=== PATIENT | female | born 1930 | race Caucasian/White ===

== ENCOUNTER 2017-01-23 16:53 | Inpatient (IN) | payer MEDICARE, MEDICAID ==
[~2017-01-23] VITALS: Ht 149.9 cm; Wt 42.3 kg
[2017-01-23] MEDS ORDERED: ALBUTEROL SULFATE 2.5 MG/ 0.5 ML NEBU NEB ONE (17:30)
[2017-01-23] MEDS ORDERED: IV NORMAL SALINE 500 ML BAG IV ONE (17:30)
[2017-01-23] MEDS ORDERED: IPRATROPIUM BROMIDE 0.5 MG/2.5 ML NEBU NEB ONE (17:30)
[2017-01-23] MEDS ORDERED: methylPREDNISolone SOD SUCC 40 MG/ML VIAL IV ONE (17:30)
--- NOTE | 2017-01-23 17:31 | NUR ---
PT IS IN ROOM #2A. DR ZAMBRANO EVALUATED THE PT.
[2017-01-23 17:41] LABS: ABG BASE EXCESS 1.8 mmol/L; ABG HCO3 26.6 mmol/L; ABG PCO2 42.4 mmHg (35.0-45.0); ABG PH 7.416 (7.350-7.450); ABG PO2 69.9 mmHg (75.0-100.0); ABG SITE LEFT BRACHIAL; ABG TOTAL HEMOGLOBIN 15.4 G/dL (12.0-16.0); MetHb 0.1 % (0.0-1.5); O2Hb 92.7 % (94.0-97.0); VENT MODE RA
[2017-01-23 18:13] LABS: BASOPHILS % (AUTO) 0.2 % (0.0-2.0); EOSINOPHILS # (AUTO) 0.1 K/uL (0.0-0.7); EOSINOPHILS % (AUTO) 1.5 % (0.0-7.0); HEMATOCRIT 44.8 % (31.2-41.9); LYMPHOCYTES # (AUTO) 1.6 K/uL (20.0-40.0); LYMPHOCYTES % (AUTO) 19.2 % (20.5-51.5); MEAN CORPUSCULAR HEMOGLOBIN 31.1 uug (24.7-32.8); MEAN CORPUSCULAR HGB CONC 34 g/dL (32.3-35.6); MEAN CORPUSCULAR VOLUME 92.7 fL (75.5-95.3); MONOCYTES # (AUTO) 0.6 K/uL (2.0-10.0); MONOCYTES % (AUTO) 6.6 % (0.0-11.0); NEUTROPHILS # (AUTO) 6.2 K/uL (1.8-8.9); NEUTROPHILS % (AUTO) 72.5 % (38.5-71.5); PLATELET COUNT (AUTO) 296 K/uL (179-408); RED BLOOD CELL COUNT(AUTO) 4.83 MIL/uL (3.63-4.92); WHITE BLOOD COUNT (AUTO) 8.5 K/uL (3.8-11.8)
[2017-01-23] MEDS ORDERED: IPRATROPIUM BROMIDE 0.5 MG/2.5 ML NEBU ONE (18:14)
[2017-01-23] MEDS ORDERED: ALBUTEROL SULFATE 2.5 MG/ 0.5 ML NEBU ONE (18:15)
[2017-01-23 18:28] LABS: CARBON DIOXIDE 27 mmol/L (21-32); CHLORIDE 104 mmol/L (98-107); CREATININE 0.6 mg/dL (0.6-1.3); GLUCOSE 97 mg/dL (74-106); POTASSIUM 4.3 mmol/L (3.5-5.1); UREA NITROGEN, BLOOD 18 mg/dL (7-18)
[2017-01-23 18:33] LABS: ALANINE AMINOTRANSFERASE 14 U/L (14-59); ALKALINE PHOSPHATASE 96 U/L (50-136); ASPARTATE AMINOTRANSFERASE 14 U/L (15-37); BILIRUBIN,TOTAL 0.3 mg/dL (0.2-1.0); TOTAL PROTEIN, SERUM 6.5 g/dL (6.4-8.2)
[2017-01-23] MEDS ORDERED: methylPREDNISolone SOD SUCC 40 MG/ML VIAL ONE (18:42)
[2017-01-23] MEDS ORDERED: LEVOFLOXACIN 500 MG/D5W 100ML PIGGYBACK IV ONE (18:45)
[2017-01-23] MEDS ORDERED: LEVOFLOXACIN 500 MG/D5W 100 ML ONE (19:17)
[2017-01-23 20:00] VITALS: BP 147/61
--- NOTE | 2017-01-23 20:50 | NUR ---
Pt alert awake with confusion noted in no resp distress. 02 sat noted 92% RA. Denies any pain or discomfort at this time. Skin intact and warm to touch. V/s stable. Oxygen 2L/min via n/c applied, 3 side rails raise, and bed alarm on. Continue to monitor. Awaiting orders at this time.
[2017-01-23] MEDS ORDERED: ONDANSETRON 4 MG/2 ML VIAL IV PRN (22:45)
[2017-01-23] MEDS ORDERED: ZOLPIDEM 5 MG TABLET PO PRN (22:45)
[2017-01-23] MEDS ORDERED: ACETAMINOPHEN 325 MG TABLET PO PRN (22:45)
[2017-01-23] MEDS ORDERED: MAGNESIUM HYDROXIDE 30 ML LIQUID UDC PO PRN (22:45)
[2017-01-23] MEDS ORDERED: HYDROCODONE/APAP 5-325MG TABLET PO PRN (22:45)
[2017-01-23] MEDS ORDERED: Z GUARD REMEDY PASTE 57 GM TUBE TOP PRN (22:45)
[2017-01-24 00:29] VITALS: BP 98/42
--- NOTE | 2017-01-24 01:00 | NUR ---
Pt in room in no acute distress. Oxygen on 2L/min at this time. Continue to monitor.
[2017-01-24 04:00] VITALS: BP 113/48
--- NOTE | 2017-01-24 05:00 | NUR ---
Pt asleep at this time. V/S stable with no acute resp distress. 02 Sat noted 96% RA. quality assurance monitor chassis sinus rhythm. Continue to monitor. Bed alarm on.
[2017-01-24 06:28] LABS: BASOPHILS % (AUTO) 0.1 % (0.0-2.0); HEMATOCRIT 41.3 % (31.2-41.9); HEMOGLOBIN 13.7 g/dL (10.9-14.3); LYMPHOCYTES # (AUTO) 0.7 K/uL (20.0-40.0); LYMPHOCYTES % (AUTO) 9.1 % (20.5-51.5); MEAN CORPUSCULAR HEMOGLOBIN 31.2 uug (24.7-32.8); MEAN CORPUSCULAR HGB CONC 33 g/dL (32.3-35.6); MEAN CORPUSCULAR VOLUME 93.9 fL (75.5-95.3); MONOCYTES # (AUTO) 0.2 K/uL (2.0-10.0); MONOCYTES % (AUTO) 2.6 % (0.0-11.0); NEUTROPHILS # (AUTO) 6.4 K/uL (1.8-8.9); NEUTROPHILS % (AUTO) 88.2 % (38.5-71.5); PLATELET COUNT (AUTO) 251 K/uL (179-408); RED BLOOD CELL COUNT(AUTO) 4.39 MIL/uL (3.63-4.92); WHITE BLOOD COUNT (AUTO) 7.2 K/uL (3.8-11.8)
[2017-01-24 06:45] LABS: CARBON DIOXIDE 24 mmol/L (21-32); CHLORIDE 108 mmol/L (98-107); CHOLESTEROL 148 mg/dL (<200); CREATININE 0.5 mg/dL (0.6-1.3); GLUCOSE 111 mg/dL (74-106); HDL CHOLESTEROL 58 mg/dL (40-60); MAGNESIUM 1.9 mg/dL (1.8-2.4); PHOSPHOROUS 4.1 mg/dL (2.5-4.9); POTASSIUM 4.4 mmol/L (3.5-5.1); TRIGLYCERIDES 50 MG/DL (30-150); UREA NITROGEN, BLOOD 14 mg/dL (7-18)
--- NOTE | 2017-01-24 08:30 | NUR ---
IN BED AWAKE ALERT TO SELF CONFUSED AND DISORIENTED ALL NEEDS ANTICIPATED AND SATISFIED TOTALLY DEPENDENT FOR ALL ADL TURNED AND REPOSITIONED Q2H NO RESPIRATORY DISTRESS AT THIS TIME WILL CONTINUE TO OBSERVE.
--- NOTE | 2017-01-24 09:53 | NUR ---
PATIENT SEEN BY DR THOMAS INTEGRITY ENGINEER WITH ORDER TO DISCONTINUE TELEMETRY AND NOTED.
[2017-01-24 11:07] VITALS: BP 133/52
[2017-01-24 15:08] VITALS: BP 120/45
--- NOTE | 2017-01-24 15:11 | NUR ---
PATIENTS SON HERE TO SEE PATIENT AND STATED THAT PATIENT NORMALLY EATS PURRED DIET AT THE LONG TERM MD NOTIFIED WITH OK TO CHANGE DIET TO PURRED TEXTURE AND NOTED DIETARY NOTIFIED.
--- NOTE | 2017-01-24 16:30 | NUR ---
PATIENT SEEN WITH ATTEMPTS TO GET OUT OF BED UNABLE TO VERBALISE WHAT SHE WANTS OR WHERE SHE WANTS TO GO INCONTINENT BRIEF CHANGED AND PATIENT ASSISTED TO THE CHAIR IN HER ROOM MADE COMFORTABLE AND WILL CONTINUE TO OBSERVE
--- NOTE | 2017-01-24 18:11 | NUR ---
SITTING UP ON THE CHAIR ASSISTED WITH DINNER WITH [employer] MADE COMFORTABLE.
[2017-01-24 19:10] VITALS: BP 136/52
--- NOTE | 2017-01-24 19:30 | NUR ---
Received patient sitting on dayana chair. No acute distress noted. A&O x 1. Fall precaution initiated. Safety initiated. Room is kept clutter free. Bed is in low and locked position. Call light within reach. Will continue to monitor.
[2017-01-25 04:00] VITALS: BP 121/50
--- NOTE | 2017-01-25 05:32 | NUR ---
No changes t/o shift. No acute distress noted. Patient slept t/o shift. All meds given as ordered. All needs met. Safety and comfort measures maintained t/o shift.
--- NOTE | 2017-01-25 08:00 | NUR ---
RECEIVED PATIENT IN BED AWAKE ALERT TO SELF ONLY WITH CONFUSSION AND DISORIENTATION ASSISTED UP ONTO THE CHAIR FOR BREAKFAST SET UP AND PATIENT IS SITTING AND FEEDING SELF AT THIS TIME.ALL NEEDS ANTICIPATED AND SATISFIED.NO RESPIRATORY DISTRESS AT THIS TIME.
[2017-01-25 11:31] VITALS: BP 135/59
[2017-01-25 15:42] VITALS: BP 138/60
[2017-01-25] MEDS ORDERED: CARB-93 PO (15:51)
[2017-01-25] MEDS ORDERED: CYAN10009 PO (15:52)
[2017-01-25] MEDS ORDERED: SACC250C PO (15:54)
[2017-01-25] MEDS ORDERED: DOCU100C36 PO (15:54)
[2017-01-25] MEDS ORDERED: BISA10SU8 RC (15:54)
[2017-01-25] MEDS ORDERED: ALEN70TA3 PO (15:55)
[2017-01-25] MEDS ORDERED: LEVA0.6320 IH (15:56)
[2017-01-25] MEDS ORDERED: LISI-607 PO (15:56)
[2017-01-25] MEDS ORDERED: MEMA10TA PO (15:57)
[2017-01-25] MEDS ORDERED: MAGN400O6 PO (15:59)
[2017-01-25] MEDS ORDERED: PROSTAT PO (15:59)
[2017-01-25] MEDS ORDERED: MULT1TAB11 PO (16:00)
[2017-01-25] MEDS ORDERED: THIA250T2 PO (16:00)
[2017-01-25] MEDS ORDERED: TRAM50TA2 PO (16:13)
[2017-01-25] MEDS ORDERED: ASCO500T10 PO (16:13)
[2017-01-25] MEDS ORDERED: ACET-2154 PO ×2 (16:13)
[2017-01-25] MEDS ORDERED: MAGNESIUM HYDROXIDE 30 ML LIQUID UDC PO PRN (17:00)
[2017-01-25] MEDS ORDERED: BISACODYL 10 MG SUPP.RECT RC PRN (17:00)
[2017-01-25] MEDS ORDERED: LEVALBUTEROL HCL NEB 0.63 MG/3 ML NEBU IH PRN (17:00)
[2017-01-25] MEDS ORDERED: TRAMADOL HCL 50 MG TABLET PO PRN (17:00)
[2017-01-25] MEDS ORDERED: ACETAMINOPHEN 325 MG TABLET PO PRN ×2 (17:00)
[2017-01-25] MEDS ORDERED: ALBUTEROL SULFATE 1.25 MG/3 ML NEBU NEB PRN (17:30)
[2017-01-25] MEDS: DOCUSATE SODIUM 100 MG CAPSULE PO SCH (17:47)
[2017-01-25] MEDS: CARBIDOPA/LEVODOPA 25-100MG TABLET PO SCH (17:47)
[2017-01-25] MEDS: MEMANTINE HCL 10 MG TABLET PO SCH (17:47)
[2017-01-25] MEDS: LISINOPRIL 5 MG TABLET PO SCH (17:48)
[2017-01-25] MEDS: CYANOCOBALAMIN 1,000 MCG TABLET PO SCH (17:49)
--- NOTE | 2017-01-25 18:00 | NUR ---
MEDICATIONS GIVEN ORDERED CRUSHED IN APPLESAUCE AND SHE TOLERATED WELL RESTING WITH NO RESPIRATORY DISTRESS AT THIS TIME.
[2017-01-25 20:00] VITALS: BP 114/50
--- NOTE | 2017-01-25 21:00 | NUR ---
pt's confused and on bed rest comfortably,denied of pain.pt's talking herself sometimes.assisted for pm care;educated to pt;she's cooperative noted.apple sauce's given to pt;she tolerated well noted.safety render.bed alarm's on.continued monitoring to pt.
[2017-01-26 06:21] VITALS: BP 113/44
--- NOTE | 2017-01-26 06:30 | NUR ---
Pt slept on/off in the shift.assisted for am care this morning;pt's cooperative with assistance.no distress noted in the shift.pt remained free from injury noted.bed alarm's on.
[2017-01-26] MEDS: CARBIDOPA/LEVODOPA 25-100MG TABLET PO SCH ×2 (09:41→16:46)
[2017-01-26] MEDS: CYANOCOBALAMIN 1,000 MCG TABLET PO SCH (09:41)
[2017-01-26] MEDS: ASCORBIC ACID 500 MG TABLET PO SCH (09:41)
[2017-01-26] MEDS: DOCUSATE SODIUM 100 MG CAPSULE PO SCH ×2 (09:41→16:46)
[2017-01-26] MEDS: MEMANTINE HCL 10 MG TABLET PO SCH ×2 (09:42→16:46)
[2017-01-26] MEDS: LISINOPRIL 5 MG TABLET PO SCH (11:15)
[2017-01-26 12:04] VITALS: BP 127/56
[2017-01-26 16:08] VITALS: BP 126/48
--- NOTE | 2017-01-26 19:00 | NUR ---
PT IS CONFUSED, CALM, TAKES MEDS CRUSHED. PT IS TOO CONFUSED TO FOLLOW PLAN OF CARE BUT UNDERSTANDS TO USE THE CALL LIGHT WHEN IN NEED OF ASSISTANCE, NON SKID SOCKS ON FETT, BED AT LOWEST LOCKED POSITION.
[2017-01-26 20:00] VITALS: BP 110/66
--- NOTE | 2017-01-26 20:00 | NUR ---
PATIENT ALERT, CONFUSED, FOLLOW SIMPLE INSTRUCTIONS,NO SOB NOTED,ASPIRATION AND FALL PRECAUTIONS OBSERVED,INCONTINENCE CARE HELP TURN AND REPOSITION,BED ALARM ON CONTINUE CLOSELY MONITOR.
[2017-01-27 06:17] VITALS: BP 104/37
[2017-01-27 06:31] LABS: BASOPHILS % (AUTO) 0.4 % (0.0-2.0); EOSINOPHILS # (AUTO) 0.3 K/uL (0.0-0.7); EOSINOPHILS % (AUTO) 3.5 % (0.0-7.0); HEMATOCRIT 42.4 % (31.2-41.9); HEMOGLOBIN 14.3 g/dL (10.9-14.3); LYMPHOCYTES # (AUTO) 1.7 K/uL (20.0-40.0); LYMPHOCYTES % (AUTO) 23.1 % (20.5-51.5); MEAN CORPUSCULAR HEMOGLOBIN 31.5 uug (24.7-32.8); MEAN CORPUSCULAR HGB CONC 34 g/dL (32.3-35.6); MEAN CORPUSCULAR VOLUME 93.7 fL (75.5-95.3); MONOCYTES # (AUTO) 0.5 K/uL (2.0-10.0); MONOCYTES % (AUTO) 7.1 % (0.0-11.0); NEUTROPHILS % (AUTO) 65.9 % (38.5-71.5); PLATELET COUNT (AUTO) 266 K/uL (179-408); RED BLOOD CELL COUNT(AUTO) 4.53 MIL/uL (3.63-4.92); WHITE BLOOD COUNT (AUTO) 7.5 K/uL (3.8-11.8)
--- NOTE | 2017-01-27 06:38 | NUR ---
NO ACUTE DISTRESS, PATIENT SLEPT WELL, VITAL SIGNS STABLE,SAFETY/COMFORT MEASURE MAINTAIN.
[2017-01-27 06:41] LABS: CARBON DIOXIDE 27 mmol/L (21-32); CHLORIDE 107 mmol/L (98-107); CREATININE 0.6 mg/dL (0.6-1.3); GLUCOSE 86 mg/dL (74-106); MAGNESIUM 2.2 mg/dL (1.8-2.4); UREA NITROGEN, BLOOD 16 mg/dL (7-18)
[2017-01-27] MEDS: ASCORBIC ACID 500 MG TABLET PO SCH (09:31)
[2017-01-27] MEDS: CYANOCOBALAMIN 1,000 MCG TABLET PO SCH (09:31)
[2017-01-27] MEDS: MEMANTINE HCL 10 MG TABLET PO SCH ×2 (09:31→17:47)
[2017-01-27] MEDS: CARBIDOPA/LEVODOPA 25-100MG TABLET PO SCH ×2 (09:31→17:47)
[2017-01-27] MEDS: DOCUSATE SODIUM 100 MG CAPSULE PO SCH ×2 (09:31→17:47)
[2017-01-27] MEDS: LISINOPRIL 5 MG TABLET PO SCH (09:34)
[2017-01-27 11:48] VITALS: BP 140/50
[2017-01-27 16:05] VITALS: BP 117/51
--- NOTE | 2017-01-27 18:21 | NUR ---
Patient have been awake during the day. No s/s of distress noted. She sat on the geriatric chair for a couple hours. Medications were administered as ordered. Patient was cooperative with interventions. Iv still on place. Safety and comfort provided during the day.
--- NOTE | 2017-01-27 19:50 | NUR ---
PATIENT TRANSFER TO ROOM 201 A.TOOK ALL BELONGINGS, PATIENT CONFUSED ABLE TO FOLLOW SIMPLE INSTRUCTION, NO RESPIRATORY DISTRESS,FALL AND ASPIRATION PRECAUTIONS.
[2017-01-27 20:00] VITALS: BP 115/48
[2017-01-28 06:30] VITALS: BP 123/54
[2017-01-28] MEDS: ASCORBIC ACID 500 MG TABLET PO SCH (08:02)
[2017-01-28] MEDS: DOCUSATE SODIUM 100 MG CAPSULE PO SCH ×2 (08:02→16:05)
[2017-01-28] MEDS: CARBIDOPA/LEVODOPA 25-100MG TABLET PO SCH ×2 (08:02→16:05)
[2017-01-28] MEDS: MEMANTINE HCL 10 MG TABLET PO SCH ×2 (08:02→16:05)
[2017-01-28] MEDS: LISINOPRIL 5 MG TABLET PO SCH (08:03)
[2017-01-28] MEDS: CYANOCOBALAMIN 1,000 MCG TABLET PO SCH (08:03)
[2017-01-28 11:20] VITALS: BP 121/47
[2017-01-28 16:00] VITALS: BP 125/52
--- NOTE | 2017-01-28 20:00 | NUR ---
RECEIVED PATIENT ASLEEP IN BED. EASILY AROUSABLE. ALERT TO SELF. NO S/S OF PAIN OR DISCOMFORT. NO FACIAL GRIMACE NOTED. VSS. BED ALARM ON. CALL LIGHT IN REACH. ALL NEEDS ATTENDED. WILL CONTINUE TO MONITOR.
[2017-01-28 20:02] VITALS: BP 112/51
--- NOTE | 2017-01-29 04:58 | NUR ---
PATIENT ASLEEP IN BED. SLEPT WELL THROUGHOUT THE NIGHT. NO S/S OF PAIN OR DISCOMFORT. NO RESP. DISTRESS NOTED. BED ALARM ON. CALL LIGHT IN REACH. ALL NEEDS ATTENDED. WILL CONTINUE TO MONITOR.
[2017-01-29] MEDS ORDERED: ALENDRONATE SODIUM 70 MG TABLET PO SCH (06:00)
[2017-01-29 06:02] VITALS: BP 108/76
--- NOTE | 2017-01-29 07:28 | NUR ---
RECEIVED PATIENT ASLEEP IN BED. EASILY AROUSABLE. ALERT TO SELF. NO S/S OF PAIN OR DISCOMFORT. VSS. BED ALARM ON. CALL LIGHT IN REACH. ALL NEEDS ATTENDED. WILL CONTINUE TO MONITOR.
[2017-01-29 08:11] VITALS: BP 110/76
[2017-01-29] MEDS: MEMANTINE HCL 10 MG TABLET PO SCH (08:11)
[2017-01-29] MEDS: DOCUSATE SODIUM 100 MG CAPSULE PO SCH (08:11)
[2017-01-29] MEDS: LISINOPRIL 5 MG TABLET PO SCH (08:11)
[2017-01-29] MEDS: ASCORBIC ACID 500 MG TABLET PO SCH (08:12)
[2017-01-29] MEDS: CYANOCOBALAMIN 1,000 MCG TABLET PO SCH (08:12)
[2017-01-29] MEDS: CARBIDOPA/LEVODOPA 25-100MG TABLET PO SCH (08:12)
[2017-01-29 08:38] LABS: CARBON DIOXIDE 29 mmol/L (21-32); CHLORIDE 108 mmol/L (98-107); CREATININE 0.6 mg/dL (0.6-1.3); GLUCOSE 93 mg/dL (74-106); MAGNESIUM 2.1 mg/dL (1.8-2.4); POTASSIUM 4.1 mmol/L (3.5-5.1); UREA NITROGEN, BLOOD 16 mg/dL (7-18)
--- NOTE | 2017-01-29 11:44 | NUR ---
D/C ORDERS RECEIVED NOTED AND CARRIED OUT,D/C [place] PER MD ORDERS.PT LEFT THE FACILITY VIA AMBULANCES IN STABLE CONDITION.
== END 2017-01-29 11:45 | DRG 917 ==
LOC: ER 16:54 → TELE 20:34 → MED 01-24 10:55
PROVIDERS: ADMIT Internal Medicine; ATTEND Internal Medicine
DX: T59.811A Toxic effect of smoke, accidental (unintentional), initial encounter (principal); J96.01 Acute respiratory failure with hypoxia; G93.41 Metabolic encephalopathy; E44.1 Mild protein-calorie malnutrition; R13.10 Dysphagia, unspecified; E88.09 Other disorders of plasma-protein metabolism, not elsewhere classified; Z68.1 Body mass index [BMI] 19.9 or less, adult; G20 Parkinson's disease; F03.90 Unspecified dementia, unspecified severity, without behavioral disturbance, psychotic disturbance, mood disturbance, and anxiety; Y92.129 Unspecified place in nursing home as the place of occurrence of the external cause; E78.5 Hyperlipidemia, unspecified; I10 Essential (primary) hypertension; J44.9 Chronic obstructive pulmonary disease, unspecified; M19.90 Unspecified osteoarthritis, unspecified site; Z88.0 Allergy status to penicillin
CPT/HCPCS: 36415; 36600; 71010; 83605; 83735; 84100; 85025; 87040; 93005; 97110; 97116; 97530; A4663; J1956; J2920; J3590